=== PATIENT | male | born 1955 | race Caucasian/White ===

== ENCOUNTER 2018-12-30 10:21 | Emergency (ER) | payer BC, OTHER ==
--- NOTE | 2018-12-30 10:27 | UC ---
Throat Pain/Nasal Cesar HPI - HPI Summary HPI Summary: 63 yo male presents with 2 weeks of a runny nose, dry cough, and sore throat. He has been taking tylenol for his discomfort with good relief. He thought he was getting better, but last night developed a much worse sore throat and fever of 103F that resolved with tylenol. This morning his throat was still painful, prompting his visit to . He is tolerating po well. Denies rash, SOB, n/v. - History of Current Complaint Stated Complaint: SORE THROAT FEVER Time Seen by Provider: 12/30/18 10:26 Hx Obtained From: Patient Onset/Duration: Gradual Onset Severity: Moderate Pain Intensity: 5 Pain Scale Used: 0-10 Numeric Cough: Nonproductive - Allergies/Home Medications Allergies/Adverse Reactions: Allergies Allergy/AdvReac Type Severity Reaction Status Date / Time No Known Allergies Allergy Verified 12/30/18 10:31 PMH/Surg Hx/FS Hx/Imm Hx Endocrine History: Dyslipidemia Cardiovascular History: Hypertension - Surgical History Surgical History: Yes Surgery Procedure, Year, and Place: inguinal hernia repair. Hip replacement - Family History Known Family History: Positive: Cardiac Disease - Social History Lives: With Family Alcohol Use: Occasionally Substance Use Type: None Smoking Status (MU): Never Smoked Tobacco Have You Smoked in the Last Year: No Review of Systems All Other Systems Reviewed And Are Negative: Yes Constitutional: Positive: Fever Skin: Positive: Negative Eyes: Positive: Negative ENT: Positive: Sore Throat, Nasal Discharge Respiratory: Positive: Cough Cardiovascular: Positive: Negative Gastrointestinal: Positive: Negative Neurovascular: Positive: Negative Neurological: Positive: Negative Psychological: Positive: Negative Physical Exam - Summary Physical Exam Summary: GENERAL: NAD. WDWN. No pain distress. SKIN: No rashes, sores, lesions, or open wounds. HEENT: Head: AT/NC Eyes: EOM intact. Conjunctiva clear without inflammation or discharge. Ears: Hearing grossly normal. TMs intact, no bulging, erythema, or edema. Nose: Nasal mucosa pink and moist. NTTP maxillary and frontal sinus. Throat: Posterior oropharynx without exudates, erythema, or tonsillar enlargement. Uvula midline. NECK: Supple. Nontender. No lymphadenopathy. CHEST: CTAB. No r/r/w. No accessory muscle use. Breathing comfortably and in no distress. CV: RRR. Without m/r/g. Pulses intact. Cap refill <2seconds NEURO: Alert. PSYCH: Age appropriate behavior. Triage Information Reviewed: Yes Vital Signs: Vital Signs: Temp Pulse Resp BP Pulse Ox 98.7 F 94 18 159/85 96 12/30/18 10:27 12/30/18 10:27 12/30/18 10:27 12/30/18 10:27 12/30/18 10:27 Laboratory Tests 12/30/18 12/30/18 10:40 10:44 Influenza A (Rapid) Negative Influenza B (Rapid) Negative Group A Strep Rapid Negative Vital Signs Reviewed: Yes Throat Pain/Nasal Course/Dx - Course Course Of Treatment: POC strep and flu negative. Pt is most concerned because he has a hip replacement and worries about infection, therefore will place him on amoxicillin at this time. - Differential Dx/Diagnosis Provider Diagnosis: Sore throat Discharge - Sign-Out/Discharge Documenting (check all that apply): Patient Departure All imaging exams completed and their final reports reviewed: No Studies - Discharge Plan Condition: Stable Disposition: HOME Prescriptions: Amoxicillin PO (*) [Amoxicillin 875 MG (*)] 875 mg PO BID #14 tab Patient Education Materials: Pharyngitis (ED) Referrals: Sandy Yi MD [Primary Care Provider] - Additional Instructions: If you develop a fever, shortness of breath, chest pain, new or worsening symptoms - please call your PCP or go to the ED. Your blood pressure was high at todays visit. Please see your primary provider within 4 weeks for recheck and re-evaluation. - Billing Disposition and Condition Condition: STABLE Disposition: Home
[2018-12-30 10:36] VITALS: BP 159/85
[2018-12-30 10:57] LABS: Influenza A Molecular NEGATIVE (Negative); Influenza B Molecular NEGATIVE (Negative)
== END 2018-12-30 11:04 | disposition home or self-care (01) ==
LOC: UCEAST 10:21
DX: J02.9 Acute pharyngitis, unspecified (principal); R50.9 Fever, unspecified; J34.89 Other specified disorders of nose and nasal sinuses; E78.5 Hyperlipidemia, unspecified; I10 Essential (primary) hypertension; Z96.649 Presence of unspecified artificial hip joint
CPT/HCPCS: 87651; 99202; G0463

== ENCOUNTER 2019-01-01 16:13 | Emergency (ER) | payer BC ==
[2019-01-01 16:32] VITALS: BP 132/75
[2019-01-01] MEDS ORDERED: Albuterol 2.5 MG/3 ML NEB.SOL* (0.083%) INH ONE (17:23)
[2019-01-01] MEDS ORDERED: Ipratropium 0.5MG/2.5ML NEB* 0.5 MG/2.5 ML NEB.SOLN INH ONE (17:23)
--- NOTE | 2019-01-01 17:24 | UC ---
Palpitation/Dysrhythmia HP - History of Current Complaint Chief Complaint: UCRespiratory Stated Complaint: THROAT COMPLAINT Time Seen by Provider: 01/01/19 16:46 Pain Intensity: 25 - Allergy/Home Medications Allergies/Adverse Reactions: Allergies Allergy/AdvReac Type Severity Reaction Status Date / Time No Known Allergies Allergy Verified 01/01/19 16:29 Home Medications: Home Medications Acetaminophen [Acetaminophen Extra Strength] 1,000 mg PO Q12HR PRN 01/01/19 [ History Confirmed 01/01/19] PMH/Surg Hx/FS Hx/Imm Hx - Surgical History Surgical History: Yes Surgery Procedure, Year, and Place: inguinal hernia repair. Hip replacement - Family History Known Family History: Positive: Cardiac Disease - Social History Alcohol Use: Occasionally Substance Use Type: None Smoking Status (MU): Never Smoked Tobacco Have You Smoked in the Last Year: No Physical Exam Vital Signs: Initial Vital Signs Temp 98.6 F 01/01/19 16:29 Pulse 85 01/01/19 16:29 Resp 18 01/01/19 16:29 BP 132/75 01/01/19 16:29 Pulse Ox 99 01/01/19 16:29 Discharge - Sign-Out/Discharge Documenting (check all that apply): Patient Departure All imaging exams completed and their final reports reviewed: Yes - Discharge Plan Condition: Stable Disposition: HOME Patient Education Materials: Bronchospasm (ED), Acute Bronchitis (ED), Pharyngitis (ED) Referrals: Sandy Yi MD [Primary Care Provider] - 3 Days (if not better) - Billing Disposition and Condition Condition: STABLE Disposition: Home
[2019-01-01] MEDS ORDERED: predniSONE TAB* 20 MG PO ONE (18:03)
--- NOTE | 2019-01-01 18:09 | UC ---
Respiratory Complaint HPI - HPI Summary HPI Summary: 63 yo male with the onset of URI symptoms about 2 weeks ago seemed to be getting better then developed a bronchospastice cough as well as fever and sore throat Had - RS and influenza 2 days ago started on amox cough worse - History of Current Complaint Chief Complaint: UCRespiratory Stated Complaint: THROAT COMPLAINT Time Seen by Provider: 01/01/19 16:46 Hx Obtained From: Patient Onset/Duration: Gradual Onset, Lasting Weeks, Worse Since - 4 days Timing: Constant Severity Initially: Mild Severity Currently: Moderate Pain Intensity: 4 Pain Scale Used: 0-10 Numeric Character: Cough: Nonproductive Aggravating Factors: Exertion, Deep Breaths Alleviating Factors: Bronchodilator Associated Signs And Symptoms: Positive: Fever, Chills, Wheezing, Nasal Congestion - Allergies/Home Medications Allergies/Adverse Reactions: Allergies Allergy/AdvReac Type Severity Reaction Status Date / Time No Known Allergies Allergy Verified 01/01/19 16:29 Home Medications: Home Medications Acetaminophen [Acetaminophen Extra Strength] 1,000 mg PO Q12HR PRN 01/01/19 [ History Confirmed 01/01/19] PMH/Surg Hx/FS Hx/Imm Hx Previously Healthy: Yes Endocrine History: Dyslipidemia Cardiovascular History: Hypertension Respiratory History: Bronchitis - Surgical History Surgical History: Yes Surgery Procedure, Year, and Place: inguinal hernia repair. Hip replacement - Family History Known Family History: Positive: Cardiac Disease - Social History Alcohol Use: Occasionally Substance Use Type: None Smoking Status (MU): Never Smoked Tobacco Have You Smoked in the Last Year: No Review of Systems All Other Systems Reviewed And Are Negative: Yes Constitutional: Positive: Fever, Chills, Fatigue Skin: Positive: Negative Eyes: Positive: Negative ENT: Positive: Sore Throat, Nasal Discharge, Sinus Congestion, Sinus Pain/ Tenderness Respiratory: Positive: Cough Cardiovascular: Positive: Negative Gastrointestinal: Positive: Negative Genitourinary: Positive: Negative Motor: Positive: Negative Neurovascular: Positive: Negative Musculoskeletal: Positive: Negative Neurological: Positive: Negative Psychological: Positive: Negative Physical Exam Triage Information Reviewed: Yes Appearance: Well-Appearing, No Pain Distress, Well-Nourished Vital Signs: Initial Vital Signs Temp 98.6 F 01/01/19 16:29 Pulse 85 01/01/19 16:29 Resp 18 01/01/19 16:29 BP 132/75 01/01/19 16:29 Pulse Ox 99 01/01/19 16:29 Vital Signs Reviewed: Yes Eyes: Positive: Conjunctiva Clear ENT: Positive: Pharyngeal erythema, Nasal congestion, Uvula midline. Negative: Hearing grossly normal, Nasal drainage, Tonsillar swelling, Tonsillar exudate, Trismus, Muffled voice, Dental tenderness, Sinus tenderness Dental Exam: Normal Neck: Positive: Supple, Nontender, No Lymphadenopathy Respiratory: Positive: No respiratory distress, No accessory muscle use, Wheezing Cardiovascular: Positive: RRR Musculoskeletal: Positive: ROM Intact, No Edema Neurological: Positive: Alert Psychological Exam: Normal Diagnostics - Radiology No standard instances Radiology Interpretation Completed By: Radiologist Summary of Radiographic Findings: no inflitrate/stigmata of copd Re-Evaluation - Re-Evaluation Second Eval Re-Evaluation Time: 18:10 Change: Improved - slightly decreased wheezing Respiratory Course/Dx - Differential Dx/Diagnosis Provider Diagnosis: Acute bronchitis, Pharyngitis Discharge - Sign-Out/Discharge Documenting (check all that apply): Patient Departure All imaging exams completed and their final reports reviewed: Yes - Discharge Plan Condition: Stable Disposition: HOME Prescriptions: predniSONE [Deltasone 20 MG TAB] 40 mg PO DAILY #8 tab Patient Education Materials: Pharyngitis (ED), Acute Bronchitis (ED), Bronchospasm (ED) Referrals: Sandy Yi MD [Primary Care Provider] - 3 Days (if not better) Additional Instructions: continue to use your inhaler blood work pending - Billing Disposition and Condition Condition: STABLE Disposition: Home
[2019-01-02 11:21] LABS: ABS Basophils 0 10^3/ul (0-0.2); ABS Eosinophils 0.1 10^3/ul (0-0.6); ABS Lymphocytes 0.9 10^3/ul (1.0-4.8); ABS Monocytes 0.5 10^3/ul (0-0.8); ABS Neutrophils 4.1 10^3/ul (1.5-7.7); ABS Nucleated RBC 0 10^3/ul; Hematocrit 40 % (36-46); Hemoglobin 13.7 g/dL (14.0-18.0); Lymphocyte % 16.1 %; Mean Corpuscular HGB Conc 34 g/dL (31-36); Mean Corpuscular Hemoglobin 31 pg (27-31); Mean Corpuscular Volume 93 fL (80-94); Mean Platelet Volume 8.2 fL (7.4-10.4); Nucleated Red Blood Cells % 0.1; Platelet Count 239 10^3/uL (150-450); Red Blood Count 4.35 10^6 /uL (4.18-5.48); Red Cell Distribution Width 13 % (10.5-15); White Blood Count 5.7 10^3/uL (3.5-10.8)
== END 2019-01-01 18:19 | disposition home or self-care (01) ==
LOC: UCEAST 16:13
DX: J20.9 Acute bronchitis, unspecified (principal); J02.9 Acute pharyngitis, unspecified; E78.5 Hyperlipidemia, unspecified; I10 Essential (primary) hypertension
CPT/HCPCS: 36415; 71046; 85025; 99212; G0463; J7512